=== PATIENT | male | born 1980 | race Caucasian/White ===

== ENCOUNTER 2017-07-23 14:37 | Emergency (ER) | payer SELFPAY ==
[~2017-07-23] VITALS: Ht 175.3 cm; Wt 70.0 kg
[2017-07-23 14:41] VITALS: BP 122/75; PULSE 104; RESP 13; TEMP 98.3; O2SAT 96
--- NOTE | 2017-07-23 16:00 | PD ---
HPI Chief Complaint: Skin Problem Time Seen by Provider: 16:00 Travel History International Travel<30 days: No Contact w/Intl Traveler<30days: No Traveled to known affect area: No History of Present Illness HPI 36-year-old male presents to emergency Department with complaint of possible bug bites all over his body 6 weeks. Since the area started out as a pimple- like looking bug bite and then the best open and drain a creamy drainage. His girlfriend has the same symptoms. Denies fever, vomiting. Denies itchiness. Says the areas are tender, but not painful. Has tried using alcohol, hydrogen peroxide, and keeping the areas clean with worsening of symptoms. Denies illicit drug use. Symptoms are mild in severity. Up-to-date on tetanus vaccination. No known aggravating or relieving factors. No known allergies. No other medical complaints. No other modifying factors or associated signs and symptoms. PFSH Social History Tobacco Use: No Allergies-Medications (Allergen,Severity, Reaction): Coded Allergies: No Known Allergies (Unverified , 07/23/17) Reported Meds & Prescriptions Reported Meds & Active Scripts Active Bactrim DS (Sulfamethoxazole-Trimethoprim) 800-160 Mg Tab 1 Tab PO BID 10 Days Keflex (Cephalexin) 500 Mg Cap 500 Mg PO Q6H 10 Days Review of Systems Except as stated in HPI: all other systems reviewed are Neg Physical Exam Narrative GENERAL: Well-nourished, well-developed male patient, in no acute distress; afebrile, nontoxic-appearing SKIN: Warm and dry. Multiple scabbed lesions noted to bilateral upper and lower extremities; all with mild erythema surrounding; most are scabbed; purulent drainage noted to one on the right arm. HEAD: Atraumatic. Normocephalic. EYES: Pupils equal and round. No scleral icterus. No injection or drainage. ENT: Mucosa pink and moist. Airway patent. NECK: Trachea midline. CARDIOVASCULAR: Regular rate. RESPIRATORY: No accessory muscle use. GASTROINTESTINAL: Flat. MUSCULOSKELETAL: No obvious deformities. No clubbing. No cyanosis. No edema. NEUROLOGICAL: Awake and alert. Oriented 3. No obvious cranial nerve deficits. Motor grossly within normal limits. Normal speech. PSYCHIATRIC: Appropriate mood and affect; insight and judgment normal. Data Data Last Documented VS Vital Signs Date Time Temp Pulse Resp B/P (MAP) Pulse Ox O2 Delivery O2 Flow Rate FiO2 07/23/17 14:41 98.3 104 13 122/75 (91) 96 Orders Orders Ed Discharge Order (07/23/17 16:07) Wound Culture And Gram Stain (07/23/17 16:07) [facility] Medical Decision Making Medical Screen Exam Complete: Yes Emergency Medical Condition: Yes Medical Record Reviewed: Yes Differential Diagnosis MRSA, staph infection, impetigo, bug bites Narrative Course 36-year-old male with a generalized nonspecific skin eruption. Patient is afebrile and nontoxic-appearing. Denies fever, vomiting. Wound culture pending. Tetanus is up-to-date. Keflex and Bactrim prescribed for home. Instructed patient to follow up with primary care provider. Patient verbalizes understanding and agreement with treatment plan. Patient is medically cleared and stable for discharge. Discussed reasons to return to the emergency department. Patient agrees with treatment plan. The patients vital signs are stable and the patient is stable for outpatient follow-up and treatment. Patient discharged home, stable and in no acute distress. Diagnosis Primary Impression: Rash and nonspecific skin eruption Referrals: [facility] Primary Care Physician Patient Instructions: General Instructions, MRSA (Methicillin-Resistant Staphylococcus Aureus) (ED) Additional Instructions: Complete full course of antibiotics Warm compresses to the affected area Keep area clean and dry Ibuprofen or Tylenol as directed and as needed for pain and inflammation Follow-up with primary care provider Return to emergency department immediately with worsening of symptoms Med/Other Pt SpecificInfo: Prescription(s) given Scripts Sulfamethoxazole-Trimethoprim (Bactrim DS) 800-160 Mg Tab 1 TAB PO BID for Infection for 10 Days, #20 TAB 0 Refills Prov: Ruma Saldana 07/23/17 Cephalexin (Keflex) 500 Mg Cap 500 MG PO Q6H for Infection for 10 Days, #40 CAP 0 Refills Prov: Ruma Saldana 07/23/17 Disposition: 01 DISCHARGE HOME Condition: Stable Ruma Saldana Jul 23, 2017 16:00
[2017-07-23] MEDS ORDERED: BACT800T5 PO (16:07)
[2017-07-23] MEDS ORDERED: CEPH-460 PO (16:07)
[2017-07-23 16:19] VITALS: PULSE 86; RESP 20
== END 2017-07-23 16:38 | disposition home or self-care (01) ==
LOC: NEPK 14:37
DX: R21 Rash and other nonspecific skin eruption (principal)
CPT/HCPCS: 87070; 87077; 87186; 87205; 99284